=== PATIENT | male | born 1995 | race Caucasian/White ===

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

== ENCOUNTER 2017-04-28 17:03 | Emergency (ER) | payer OTHER ==
--- NOTE | 2017-04-28 17:50 | RAD ---
INDICATION: Left hand pain COMPARISON: None TECHNIQUE: AP and lateral views were obtained. FINDINGS: No acute fractures seen. The joint spaces and soft tissues are normal. Evaluation of the fifth and fourth digits limited due to hand positioning. IMPRESSION: MILDLY LIMITED EXAMINATION. NO ACUTE ABNORMALITIES ARE IDENTIFIED.
[2017-04-28] MEDS ORDERED: HYDROcodone/ACETAMIN 5-325 MG* 1 TAB PO ONE (18:20)
[2017-04-28] MEDS ORDERED: LORazepam TAB(*) 1 MG PO ONE (18:20)
[2017-04-28] MEDS ORDERED: Lidocaine 1%* 5 ML VIAL INJ ONE (20:27)
[2017-04-28] MEDS ORDERED: Lidocaine 1%* 5 ML VIAL ONE (20:28)
[2017-04-28] MEDS ORDERED: cefTRIAXone VIAL(*) 1,000 MG VIAL IM ONE (20:46)
[2017-04-28] MEDS ORDERED: Tetan/Diph/Pertus SYR(Tdap)* 0.5 ML SYR(BOOSTRIX) use SYR IM ONE (20:47)
[2017-04-28 21:16] VITALS: BP 130/66
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
== END 2017-04-28 21:16 | disposition home or self-care (01) ==
LOC: ED 17:03
DX: S61.512A Laceration without foreign body of left wrist, initial encounter (principal); S61.412A Laceration without foreign body of left hand, initial encounter; W45.8XXA Other foreign body or object entering through skin, initial encounter; Y92.9 Unspecified place or not applicable; Z23 Encounter for immunization
CPT/HCPCS: 12004; 90471; 90715; 96372; 99284; A9270-GY; J0696